=== PATIENT | male | born 1965 | race Caucasian/White ===

== ENCOUNTER 2017-12-26 22:00 | Emergency (ER) | payer MEDICARE, MEDICAID ==
[~2017-12-26] VITALS: Ht 170.2 cm; Wt 106.2 kg
[~2017-12-26 22:00] MED LIST: LISI-661 PO; LISI-662 PO; METF500T4 PO; OLAN10TA3 PO; RISP4 PO; TRIL8 PO
[2017-12-26 23:58] VITALS: BP 137/85
== END 2017-12-26 23:59 | disposition home or self-care (01) ==
LOC: EMS 22:02
DX: F20.9 Schizophrenia, unspecified (principal); F32.9 Major depressive disorder, single episode, unspecified; E11.9 Type 2 diabetes mellitus without complications; I10 Essential (primary) hypertension; F17.210 Nicotine dependence, cigarettes, uncomplicated
CPT/HCPCS: 99284

== ENCOUNTER 2018-02-08 22:28 | Inpatient (IN) | payer MEDICARE, MEDICAID ==
[~2018-02-08] VITALS: Ht 172.7 cm; Wt 112.9 kg
[~2018-02-08 22:28] MED LIST changes: -LISI-661 PO; -METF500T4 PO; +METF500T6 PO
[2018-02-08] MEDS ORDERED: OLANZapine 5 MG RAPDIS TABLET PO PRN (23:00)
[2018-02-08] MEDS ORDERED: ZOLPIDEM TARTRATE 10 MG TABLET PO PRN (23:00)
[2018-02-08 23:36] VITALS: BP 118/77
[2018-02-08] MEDS ORDERED: PNEUMOCOCCAL VACCINE POLYVALENT 0.5 ML VIAL [PPSV23] IM ONE (23:45)
[2018-02-09 00:04] VITALS: BP 138/81
[2018-02-09 00:22] LABS: GLUCOMETER DEV NAME(LOC) BV2N3; GLUCOSE,POINT OF CARE 147 MG/DL (70-110)
[2018-02-09] MEDS: LORazepam 2 MG TABLET PO PRN ×2 (00:30→10:05)
[2018-02-09 06:23] LABS: GLUCOMETER DEV NAME(LOC) BV2N3; GLUCOSE,POINT OF CARE 96 MG/DL (70-110)
[2018-02-09] MEDS ORDERED: INSULIN LISPRO 100 UNITS/ML SQ PRN (08:00)
[2018-02-09 08:35] VITALS: BP 147/91
[2018-02-09 08:36] LABS: BASOPHILS % (AUTO) 0.5 % (0.0-2.0); EOSINOPHILS % (AUTO) 9.1 % (1.0-6.0); HEMATOCRIT 44.8 % (41-53); HEMOGLOBIN 15.5 g/dL (13.5-17.5); LYMPHOCYTES # (AUTO) 1.3 K/uL (1.0-4.8); LYMPHOCYTES % (AUTO) 24.1 % (22.0-44.0); MEAN CORPUSCULAR HEMOGLOBIN 31.7 pg (26.0-34.0); MEAN CORPUSCULAR HGB CONC 34.6 G/dL (31.0-37.0); MEAN CORPUSCULAR VOLUME 92 fL (80-100); MONOCYTES # (AUTO) 0.5 K/uL (0.1-1.0); MONOCYTES % (AUTO) 10.1 % (2.0-9.0); NEUTROPHILS % (AUTO) 56.2 % (40.0-70.0); PLATELET COUNT (AUTO) 155 K/uL (150-450); RED BLOOD CELL COUNT(AUTO) 4.88 MIL/uL (4.50-5.90); RED CELL DISTRIBUTION WIDTH 13.4 % (11.5-14.5)
[2018-02-09 09:02] LABS: HEMOGLOBIN A1C 5.2 % (4.5-6.2)
[2018-02-09 09:16] LABS: ALANINE AMINOTRANSFERASE 85 U/L (12-78); ALBUMIN 3.5 g/dL (3.4-5.0); ALKALINE PHOSPHATASE 137 U/L (46-116); ANION GAP 6 mmol/L (8-16); ASPARTATE AMINOTRANSFERASE 67 U/L (15-37); BILIRUBIN,TOTAL 0.5 mg/dL (0.1-1.0); CARBON DIOXIDE 33 mmol/L (22-29); CHLORIDE 104 mmol/L (98-107); CHOL/HDL RATIO 4.8 (4.2-7.3); CHOLESTEROL 133 mg/dL (131-200); FREE T4 (FREE THYROXINE) 1.09 ng/dL (0.76-1.46); GLOMERULAR FILTR. RATE CALC > 60 mL/min (>60); GLUCOSE,RANDOM 93 mg/dL (70-110); HDL CHOLESTEROL 28 mg/dL (40-60); LDL CHOL (CALC.) 53 mg/dL (0-130); SODIUM SERUM 143 mmol/L (136-145); THYROID STIMULATING HORMONE 3.53 uIU/mL (0.36-3.74); TOTAL PROTEIN, SERUM 6.6 g/dL (6.4-8.2); TRIGLYCERIDES 262 mg/dL (15-150); UREA NITROGEN, BLOOD 12 mg/dL (7-18)
[2018-02-09] MEDS ORDERED: HydrOXYzine PAMOATE 50 MG CAPSULE PO PRN (10:00)
[2018-02-09] MEDS ORDERED: MAGNESIUM HYDROXIDE SUSPENSION 30 ML UDCUP PO PRN (10:00)
[2018-02-09] MEDS ORDERED: PROMETHAZINE HCL 25 MG TABLET PO PRN (10:00)
[2018-02-09] MEDS ORDERED: LOPERAMIDE HCL 2 MG CAPSULE PO PRN (10:00)
[2018-02-09] MEDS ORDERED: TUBERCULIN, PURIFIED PROTEIN DERIVATIVE 5 TU/0.1 ML SYG ID ONE (10:00)
[2018-02-09] MEDS ORDERED: ACETAMINOPHEN 325 MG TABLET PO PRN (10:00)
[2018-02-09] MEDS ORDERED: GuaiFENesin/D-METHORPHAN [SUGAR-FREE] 200-20MG/10 ML SYRUP UDCUP PO PRN (10:00)
[2018-02-09] MEDS ORDERED: MAG HYDROX/AL HYDROX/SIMETH ES 30 ML SUSPENSION UDCUP PO PRN (10:00)
[2018-02-09] MEDS: DIVALPROEX SODIUM 500 MG DR TABLET PO SCH ×2 (10:05→17:02)
[2018-02-09] MEDS: LISINOPRIL 20 MG TABLET PO SCH (10:10)
[2018-02-09] MEDS: NICOTINE 21 MG/24 HOUR PATCH TD SCH (10:11)
[2018-02-09 11:09] VITALS: BP 125/61
[2018-02-09 15:12] LABS: GLUCOMETER DEV NAME(LOC) BV2N3; GLUCOSE,POINT OF CARE 90 MG/DL (70-110)
[2018-02-09 16:37] LABS: GLUCOMETER DEV NAME(LOC) BV2N3; GLUCOSE,POINT OF CARE 93 MG/DL (70-110)
[2018-02-09] MEDS ORDERED: MetFORMIN HCL 850 MG TABLET PO SCH (17:00)
[2018-02-09] MEDS: THIAMINE HCL 100 MG TABLET PO SCH (17:02)
[2018-02-09] MEDS: MetFORMIN HCL 500 MG TABLET PO SCH (17:27)
[2018-02-09] MEDS: ALPRAZolam 0.5 MG TABLET PO PRN (17:54)
[2018-02-09 18:45] VITALS: BP 150/95
[2018-02-09 20:30] VITALS: BP 139/88
[2018-02-09 20:42] LABS: GLUCOMETER DEV NAME(LOC) BV2N3; GLUCOSE,POINT OF CARE 86 MG/DL (70-110)
[2018-02-09] MEDS: LISINOPRIL 10 MG TABLET PO SCH (20:47)
[2018-02-09] MEDS: DULoxetine HCL 20 MG CAPSULE PO SCH (20:47)
[2018-02-09] MEDS ORDERED: OLANZapine 7.5 MG TABLET PO SCH (21:00)
[2018-02-10 04:20] VITALS: BP 126/82
[2018-02-10] MEDS: ALPRAZolam 0.5 MG TABLET PO PRN ×2 (04:39→16:35)
[2018-02-10 06:12] LABS: GLUCOMETER DEV NAME(LOC) BV2N3; GLUCOSE,POINT OF CARE 86 MG/DL (70-110)
[2018-02-10] MEDS: MetFORMIN HCL 500 MG TABLET PO SCH ×2 (06:51→17:02)
[2018-02-10 08:24] VITALS: BP 137/82
[2018-02-10] MEDS: CHOLECALCIFEROL (VIT D3) 1,000 UNITS TABLET PO SCH (08:35)
[2018-02-10] MEDS: NALTREXONE HCL 50 MG TABLET PO SCH (08:35)
[2018-02-10] MEDS: FOLIC ACID 1 MG TABLET PO SCH (08:35)
[2018-02-10] MEDS: LISINOPRIL 20 MG TABLET PO SCH (08:35)
[2018-02-10] MEDS: DIVALPROEX SODIUM 500 MG DR TABLET PO SCH ×2 (08:35→17:02)
[2018-02-10] MEDS: THIAMINE HCL 100 MG TABLET PO SCH ×2 (08:35→17:02)
[2018-02-10] MEDS: MULTIVITAMINS WITH MINERALS, THERAPEUTIC TABLET PO SCH (08:35)
[2018-02-10] MEDS: NICOTINE 21 MG/24 HOUR PATCH TD SCH (08:36)
[2018-02-10] MEDS ORDERED: DULoxetine HCL 20 MG CAPSULE PO SCH (09:00)
[2018-02-10 11:23] LABS: GLUCOMETER DEV NAME(LOC) BV2N3; GLUCOSE,POINT OF CARE 93 MG/DL (70-110)
[2018-02-10] MEDS ORDERED: QUEtiapine FUMARATE 100 MG TABLET PO PRN (14:00)
[2018-02-10 16:08] VITALS: BP 140/87
[2018-02-10] MEDS ORDERED: HALOPERIDOL LACTATE 5 MG/ML VIAL IM PRN (16:15)
[2018-02-10] MEDS: GEMFIBROZIL 600 MG TABLET PO SCH (16:35)
[2018-02-10 17:12] LABS: GLUCOMETER DEV NAME(LOC) BV2N3; GLUCOSE,POINT OF CARE 115 MG/DL (70-110)
[2018-02-10 20:20] VITALS: BP 127/86
[2018-02-10] MEDS: LISINOPRIL 10 MG TABLET PO SCH (20:22)
[2018-02-10] MEDS: DULoxetine HCL 20 MG CAPSULE PO SCH (20:22)
[2018-02-10 20:58] LABS: GLUCOMETER DEV NAME(LOC) BV2N3; GLUCOSE,POINT OF CARE 129 MG/DL (70-110)
[2018-02-10] MEDS ORDERED: QUEtiapine FUMARATE 200 MG TABLET PO SCH (21:00)
[2018-02-11 00:56] VITALS: BP 133/77
[2018-02-11] MEDS: ALPRAZolam 0.5 MG TABLET PO PRN (03:55)
[2018-02-11 06:22] LABS: GLUCOMETER DEV NAME(LOC) BV2N3; GLUCOSE,POINT OF CARE 91 MG/DL (70-110)
[2018-02-11] MEDS: GEMFIBROZIL 600 MG TABLET PO SCH ×2 (06:53→16:37)
[2018-02-11] MEDS: MetFORMIN HCL 500 MG TABLET PO SCH ×2 (06:54→16:37)
[2018-02-11 08:42] VITALS: BP 120/79
[2018-02-11] MEDS: THIAMINE HCL 100 MG TABLET PO SCH ×2 (08:47→16:37)
[2018-02-11] MEDS: DIVALPROEX SODIUM 500 MG DR TABLET PO SCH ×2 (08:47→16:37)
[2018-02-11] MEDS: CHOLECALCIFEROL (VIT D3) 1,000 UNITS TABLET PO SCH (08:47)
[2018-02-11] MEDS: MULTIVITAMINS WITH MINERALS, THERAPEUTIC TABLET PO SCH (08:47)
[2018-02-11] MEDS: NALTREXONE HCL 50 MG TABLET PO SCH (08:47)
[2018-02-11] MEDS: FOLIC ACID 1 MG TABLET PO SCH (08:47)
[2018-02-11] MEDS: LISINOPRIL 20 MG TABLET PO SCH (08:47)
[2018-02-11] MEDS: NICOTINE 21 MG/24 HOUR PATCH TD SCH (08:48)
[2018-02-11 11:12] LABS: GLUCOMETER DEV NAME(LOC) BV2N3; GLUCOSE,POINT OF CARE 86 MG/DL (70-110)
[2018-02-11] MEDS ORDERED: DULO20CA30 PO (12:38)
[2018-02-11] MEDS ORDERED: QUET200T29 PO (12:38)
[2018-02-11] MEDS ORDERED: NALT50TA PO (12:38)
[2018-02-11] MEDS ORDERED: DIVA500T35 PO (12:38)
[2018-02-11 16:38] LABS: GLUCOMETER DEV NAME(LOC) BV2N3; GLUCOSE,POINT OF CARE 114 MG/DL (70-110)
[2018-02-11 16:41] VITALS: BP 144/90
[2018-02-11 20:39] VITALS: BP 148/87
[2018-02-11] MEDS: LISINOPRIL 10 MG TABLET PO SCH (20:41)
[2018-02-11] MEDS: DULoxetine HCL 20 MG CAPSULE PO SCH (20:41)
[2018-02-11 20:43] LABS: GLUCOMETER DEV NAME(LOC) BV2S 2; GLUCOSE,POINT OF CARE 98 MG/DL (70-110)
[2018-02-11] MEDS ORDERED: QUEtiapine FUMARATE 200 MG TABLET PO SCH (21:00)
[2018-02-11 21:45] VITALS: BP 136/90
[2018-02-12 02:22] VITALS: BP 120/80
[2018-02-12] MEDS ORDERED: VITAD1000 PO (03:26)
[2018-02-12] MEDS ORDERED: GEMF600T3 PO (03:26)
[2018-02-12] MEDS ORDERED: LISI-661 PO (03:27)
[2018-02-12] MEDS ORDERED: DIVA500T35 PO (03:29)
[2018-02-12] MEDS: GEMFIBROZIL 600 MG TABLET PO SCH (05:46)
[2018-02-12 05:58] LABS: GLUCOMETER DEV NAME(LOC) BV2N3; GLUCOSE,POINT OF CARE 92 MG/DL (70-110)
[2018-02-12] MEDS: MetFORMIN HCL 500 MG TABLET PO SCH (06:40)
[2018-02-12 08:45] VITALS: BP 106/73
[2018-02-12] MEDS: CHOLECALCIFEROL (VIT D3) 1,000 UNITS TABLET PO SCH (08:49)
[2018-02-12] MEDS: DIVALPROEX SODIUM 500 MG DR TABLET PO SCH (08:49)
[2018-02-12] MEDS: THIAMINE HCL 100 MG TABLET PO SCH (08:49)
[2018-02-12] MEDS: NALTREXONE HCL 50 MG TABLET PO SCH (08:49)
[2018-02-12] MEDS: FOLIC ACID 1 MG TABLET PO SCH (08:49)
[2018-02-12] MEDS: MULTIVITAMINS WITH MINERALS, THERAPEUTIC TABLET PO SCH (08:50)
[2018-02-12] MEDS: NICOTINE 21 MG/24 HOUR PATCH TD SCH (08:50)
[2018-02-12] MEDS: LISINOPRIL 20 MG TABLET PO SCH (08:52)
[2018-02-12 11:08] LABS: GLUCOMETER DEV NAME(LOC) BV2N3; GLUCOSE,POINT OF CARE 88 MG/DL (70-110)
[2018-02-12 16:10] VITALS: BP 130/75
== END 2018-02-12 17:43 | disposition home or self-care (01) | DRG 885 ==
LOC: EDSTATUS 22:53 → B2X 23:02
PROVIDERS: ADMIT Psychiatry & Neurology Psychiatry; ATTEND Psychiatry & Neurology Psychiatry
DX: F20.0 Paranoid schizophrenia (principal); R56.9 Unspecified convulsions; E11.9 Type 2 diabetes mellitus without complications; B19.20 Unspecified viral hepatitis C without hepatic coma; E78.1 Pure hyperglyceridemia; F32.9 Major depressive disorder, single episode, unspecified; F41.0 Panic disorder [episodic paroxysmal anxiety]; F17.200 Nicotine dependence, unspecified, uncomplicated; G47.30 Sleep apnea, unspecified; I10 Essential (primary) hypertension; Z91.19 Patient's noncompliance with other medical treatment and regimen; Z88.8 Allergy status to other drugs, medicaments and biological substances
CPT/HCPCS: 83036; 84439; 84443

== ENCOUNTER 2018-09-13 13:21 | Emergency (ER) | payer MEDICARE, MEDICAID ==
[~2018-09-13] VITALS: Ht 175.3 cm; Wt 113.2 kg
[~2018-09-13 13:21] MED LIST changes: +DIVA-78 PO; +DULO20CA30 PO; +GEMF600T5 PO; +LISI-661 PO; +METF-960 PO; -METF500T6 PO; +NALT50TA PO; -OLAN10TA3 PO; +QUET200T29 PO; -RISP4 PO; -TRIL8 PO; +VITAD1000 PO
[2018-09-13 14:24] VITALS: BP 149/103
[2018-09-13 14:33] LABS: GLUCOSE,POINT OF CARE 137 MG/DL (70-110)
== END 2018-09-13 15:35 | disposition left against medical advice (07) ==
LOC: EMS 13:22
DX: K59.00 Constipation, unspecified (principal); Z53.21 Procedure and treatment not carried out due to patient leaving prior to being seen by health care provider
CPT/HCPCS: 93005

== ENCOUNTER 2024-05-27 21:58 | Emergency (ER) | payer MEDICARE, MEDICAID ==
[~2024-05-27] VITALS: Ht 165.1 cm; Wt 117.3 kg
[~2024-05-27 21:58] MED LIST changes: +AMLO-257 PO; +ASPI81TA39 PO; +ATOR40TA28 PO; +BUDE10.27 IH; +CHOL25TA4 PO; +DIVA-112 PO; -DIVA-78 PO; -DULO20CA30 PO; +FERR325T27 PO; -GEMF600T5 PO; +LEVO88TA7 PO; -LISI-661 PO; -LISI-662 PO; +LITH300C3 PO; +METF-1211 PO; -METF-960 PO; +METO25 PO; -NALT50TA PO; -QUET200T29 PO; +RISP3TAB77 PO; +SODI100067 PO; -VITAD1000 PO
[2024-05-27 22:31] VITALS: BP 152/90; PULSE 80; RESP 16; TEMP 98.4; O2SAT 97
[2024-05-28] MEDS: ACETAMINOPHEN 500 MG TABLET PO ONE (00:16)
== END 2024-05-28 06:26 ==
LOC: EMS 21:58
DX: M25.561 Pain in right knee (principal); E11.9 Type 2 diabetes mellitus without complications; I10 Essential (primary) hypertension; F20.9 Schizophrenia, unspecified; F17.210 Nicotine dependence, cigarettes, uncomplicated; W19.XXXA Unspecified fall, initial encounter; Y93.89 Activity, other specified; Y92.89 Other specified places as the place of occurrence of the external cause; Y99.8 Other external cause status
CPT/HCPCS: 99283

== ENCOUNTER 2024-05-28 17:20 | Emergency (ER) | payer MEDICARE, MEDICAID ==
[~2024-05-28] VITALS: Ht 175.3 cm; Wt 102.0 kg
[2024-05-28 17:44] VITALS: TEMP 98.2
[2024-05-28 19:12] LABS: BASOPHILS % (AUTO) 0.1 % (0.0-2.0); HEMATOCRIT 35.6 % (41-53); HEMOGLOBIN 11.9 g/dL (13.5-17.5); LYMPHOCYTES # (AUTO) 1.4 K/uL (1.0-4.8); LYMPHOCYTES % (AUTO) 10.4 % (22.0-44.0); MEAN CORPUSCULAR HEMOGLOBIN 29.5 pg (26.0-34.0); MEAN CORPUSCULAR HGB CONC 33.4 G/dL (31.0-37.0); MEAN CORPUSCULAR VOLUME 88 fL (80-100); MONOCYTES # (AUTO) 1.5 K/uL (0.1-1.0); MONOCYTES % (AUTO) 11.7 % (2.0-9.0); NEUTROPHILS # (AUTO) 9.9 K/uL (1.8-7.7); NEUTROPHILS % (AUTO) 75.8 % (40.0-70.0); PLATELET COUNT (AUTO) 366 K/uL (150-450); RED BLOOD CELL COUNT(AUTO) 4.03 MIL/uL (4.50-5.90); RED CELL DISTRIBUTION WIDTH 13.8 % (11.5-14.5)
[2024-05-28 19:18] LABS: ANION GAP 9 mmol/L (8-16); CALCIUM, TOTAL 9.1 mg/dL (8.8-10.5); CARBON DIOXIDE 27 mmol/L (22-29); CHLORIDE 95 mmol/L (98-107); CREATININE 1.47 mg/dL (0.60-1.30); GLOMERULAR FILTR. RATE CALC 50 mL/min (>60); GLUCOSE,RANDOM 172 mg/dL (70-110); POTASSIUM 4.5 mmol/L (3.5-5.1); SODIUM SERUM 131 mmol/L (136-145); UREA NITROGEN, BLOOD 28 mg/dL (7-18)
[2024-05-28 19:21] LABS: ALCOHOL, BLOOD (SERUM) < 3 mg/dL (0-10)
[2024-05-28 19:27] LABS: LITHIUM 0.27 mmol/L (0.60-1.20)
[2024-05-28 20:10] VITALS: BP 138/87; PULSE 89; RESP 16; O2SAT 100
== END 2024-05-29 03:19 | disposition admitted as inpatient to this hospital (09) ==
LOC: EMS 17:20
DX: F20.9 Schizophrenia, unspecified (principal); K21.9 Gastro-esophageal reflux disease without esophagitis; E11.9 Type 2 diabetes mellitus without complications; I10 Essential (primary) hypertension; R56.9 Unspecified convulsions; F17.210 Nicotine dependence, cigarettes, uncomplicated
CPT/HCPCS: 99285; 71045; 80048; 80178; 85025; 36415; 93005; G0480